=== PATIENT | female | born 2000 | race Caucasian/White ===

== ENCOUNTER 2019-08-04 07:54 | Inpatient (IN) ==
[2019-08-04] MEDS ORDERED: OXYTOCIN/LR 20 UNIT/1,000 ML BAG IV ONE ×2 (08:09→11:35)
[2019-08-04] MEDS ORDERED: ONDANSETRON 4 MG/2 ML VIAL IV PRN (08:09)
[2019-08-04] MEDS ORDERED: miSOPROStoL 200 MCG TABLET ONE (08:26)
[2019-08-04] MEDS ORDERED: LIDOCAINE 1% 50 ML VIAL ONE (08:26)
[2019-08-04 08:28] LABS: Basophils # 0.1 10*3/uL (0.0-0.2); Basophils % 0.4 % (0.0-0.8); Eosinophils % 0.2 % (0.00-10.9); Hematocrit 35.9 VOL% (35.7-47.0); Hemoglobin 11.8 GM/DL (12.0-16.0); Immature Granulocytes % 0.4 %; Immature Granulocytes Absolute 0.05 #; Lymphocytes # 1.7 10*3/uL (1.4-4.0); Lymphocytes % 13.2 % (21.3-54.2); Mean Corpuscular HGB Conc 32.9 GM/DL (32-36); Mean Corpuscular Volume 92.8 FL (87-102); Mean Platelet Volume 11.8 FL (9.6-12.0); Monocytes % 7.1 % (1.7-12.7); Neutrophils % 78.7 % (38.7-73.9); Platelet Count 227 T/CUMM (130-400); Red Blood Count 3.87 MC/CUMM (3.8-5.5); Red Cell Distribution Width 12.2 % (9.3-17.3); White Blood Count 12.7 T/CUMM (4-12)
[2019-08-04] MEDS ORDERED: LACTATED RINGERS 1,000 ML IV SCH (08:30)
[2019-08-04] MEDS ORDERED: PROMETHAZINE 25 MG/1 ML VIAL ONE (08:35)
[2019-08-04] MEDS ORDERED: MEPERIDINE 50 MG/1 ML VIAL ONE (08:35)
[2019-08-04] MEDS ORDERED: MEPERIDINE 50 MG/1 ML VIAL IM ONE (08:36)
[2019-08-04] MEDS ORDERED: PROMETHAZINE 25 MG/1 ML VIAL IM ONE (08:36)
[2019-08-04] MEDS: OXYTOCIN/LR 20 UNIT/1,000 ML BAG IV SCH ×2 (08:41→11:22)
[2019-08-04 08:46] LABS: Cord Arterial Blood HCO3 21.8 MMOL/L
[2019-08-04 08:47] LABS: Cord Venous Blood HCO3 19.2 MMOL/L; Cord Venous Blood PCO2 39.2 MMHG
[2019-08-04 08:50] LABS: Cord Venous Blood PO2 14.4
[2019-08-04 08:51] LABS: Albumin 3.1 G/DL (3.4-5.0); Bilirubin,Total 0.6 MG/DL (0.2-1.0); Calcium 9.3 MG/DL (8.5-10.1); Total Protein 7.2 G/DL (6.4-8.3)
[2019-08-04] MEDS ORDERED: AZITHROMYCIN 250 MG TABLET PO ONE (08:58)
[2019-08-04] MEDS ORDERED: WITCH HAZEL PADS 100/JAR TOP PRN (11:35)
[2019-08-04] MEDS ORDERED: DIPH/TET/ACEL PERT BOOSTER VACCINE 0.5 ML VIAL IM ONE (11:35)
[2019-08-04] MEDS ORDERED: LANOLIN 50% CREAM 0.3 OZ TUBE TOP PRN (11:35)
[2019-08-04] MEDS ORDERED: ACETAMINOPHEN 325 MG TABLET PO PRN (11:35)
[2019-08-04] MEDS ORDERED: MEASLES/MUMPS/RUBELLA VACCINE 0.5 ML VIAL SUBCUT ONE (11:35)
[2019-08-04] MEDS ORDERED: oxyCODONE/ACETAMINOPHEN 5-325 MG TABLET PO PRN (11:35)
[2019-08-04] MEDS ORDERED: HYDROCORTISONE 2.5% RECTAL CREAM 30 GM TUBE TOP PRN (11:35)
[2019-08-04] MEDS ORDERED: RHO(D) IMMUNE GLOBULIN 300 MCG SYRINGE IM ONE (11:35)
[2019-08-04] MEDS ORDERED: IBUPROFEN 800 MG TABLET PO PRN (11:35)
[2019-08-04] MEDS ORDERED: BISACODYL 10 MG SUPP RECTAL PRN (11:35)
[2019-08-04] MEDS ORDERED: BENZOCAINE 20%/MENTHOL 0.5% SPRAY 56 GM CAN TOP PRN (11:35)
[2019-08-04] MEDS ORDERED: ONDANSETRON 4 MG/2 ML VIAL IV ONE (11:38)
[2019-08-04] MEDS: oxyCODONE/ACETAMINOPHEN 5-325 MG TABLET PO PRN (19:41)
[2019-08-04] MEDS: DOCUSATE SODIUM 100 MG CAPSULE PO SCH (21:19)
[2019-08-05] MEDS: oxyCODONE/ACETAMINOPHEN 5-325 MG TABLET PO PRN ×2 (02:00→23:13)
[2019-08-05 05:57] LABS: Basophils # 0.1 10*3/uL (0.0-0.2); Basophils % 0.4 % (0.0-0.8); Eosinophils # 0.1 10*3/uL (0.0-0.87); Hemoglobin 10.4 GM/DL (12.0-16.0); Immature Granulocytes % 0.4 %; Immature Granulocytes Absolute 0.05 #; Lymphocytes # 2.4 10*3/uL (1.4-4.0); Lymphocytes % 21.8 % (21.3-54.2); Mean Corpuscular HGB Conc 33.5 GM/DL (32-36); Mean Corpuscular Volume 90.6 FL (87-102); Monocytes % 10.5 % (1.7-12.7); Neutrophils % 65.9 % (38.7-73.9); Platelet Count 169 T/CUMM (130-400); Red Blood Count 3.42 MC/CUMM (3.8-5.5); Red Cell Distribution Width 12.2 % (9.3-17.3); White Blood Count 11.2 T/CUMM (4-12)
[2019-08-05] MEDS: DOCUSATE SODIUM 100 MG CAPSULE PO SCH ×2 (08:00→21:14)
[2019-08-06 07:52] VITALS: BP 133/87
[2019-08-06] MEDS: DOCUSATE SODIUM 100 MG CAPSULE PO SCH (08:08)
== END 2019-08-06 11:15 | disposition home or self-care (01) | DRG 560 ==
LOC: N.LDOUT 07:54 → N.LD 07:55 → N.OB 12:09
PROVIDERS: ADMIT Obstetrics & Gynecology; ATTEND Obstetrics & Gynecology